=== PATIENT | female | born 2005 | race Hispanic/Latino ===

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

== ENCOUNTER 2024-03-29 18:34 | Emergency (ER) | payer SELFPAY ==
[~2024-03-29] VITALS: Ht 149.9 cm; Wt 74.8 kg
[~2024-03-29 18:34] MED LIST: IBUP-2070 PO
[2024-03-29 19:18] LABS: BASOPHILS # (AUTO) 0.01 K/uL (0.00-0.20); BASOPHILS % (AUTO) 0.1 % (0.0-5.0); HEMATOCRIT 40.6 % (36-48); IMMATURE GRANULOCYTE ABSOLUTE 0.02 K/uL (0-1); LYMPHOCYTES % (AUTO) 10.5 % (21.0-51.0); MEAN CORPUSCULAR HEMOGLOBIN 24.3 pg (27.0-33.0); MEAN CORPUSCULAR HGB CONC 31.3 g/dL (32.0-36.0); MEAN CORPUSCULAR VOLUME 77.8 fL (80-100); MONOCYTES # (AUTO) 0.4 K/uL (0.1-1.0); MONOCYTES % (AUTO) 4.1 % (3.0-13.0); NEUTROPHILS # (AUTO) 8.2 K/uL (1.8-7.7); NEUTROPHILS % (AUTO) 85.1 % (40.0-77.0); PLATELET COUNT (AUTO) 289 K/uL (130-400); RED BLOOD CELL COUNT(AUTO) 5.22 MIL/uL (4.00-5.50); RED CELL DISTRIBUTION WIDTH 14.5 % (11.0-15.5); WHITE BLOOD COUNT (AUTO) 9.7 K/uL (4.8-10.8)
[2024-03-29 19:27] LABS: CREATININE 0.9 mg/dL (0.5-1.0); POTASSIUM 3.1 mmol/L (3.5-5.1)
[2024-03-29 19:31] LABS: BILIRUBIN,DIRECT 0.2 mg/dL (0.0-0.3); BILIRUBIN,TOTAL 1.4 mg/dL (0.2-1.0); TOTAL PROTEIN, SERUM 8.3 g/dL (6.0-8.3)
--- NOTE | 2024-03-29 19:45 | NUR ---
CALLED FOR PT IN LOBBY TO MOVE TO FT; NO RESPONSE; PT NOT FOUND IN LOBBY
--- NOTE | 2024-03-29 20:00 | HMCIMG ---
CT ABDOMEN/PELVIS W/O CONTRAST REASON: bilateral flank pain COMPARISON: None. FINDINGS: Lung bases are clear. There are no focal liver lesions. There are normal-appearing kidneys.. Spleen and pancreas appear unremarkable. The gallbladder appears normal as well. Bowel loops appear unremarkable. This includes normal appearance of the appendix There is no evidence of free fluid or intraperitoneal air. There are no focal fluid collections. Aorta and retroperitoneum appear normal as do pelvic soft tissue structures. The anterior abdominal wall is intact. Osseous structures appear unremarkable. IMPRESSION: 1. Negative noncontrast CT abdomen and pelvis. CT was performed with one or more following dose reduction techniques: automated exposure control, adjustment of the mA and kv according to patient's size, or use of a iterative reconstruction technique.
--- NOTE | 2024-03-29 20:30 | ERN ---
ED Note History of Present Illness Stated Complaint: DIARRHEA Chief Complaint: Nausea,Vomiting,Diarrhea Time Seen by MD: 18:36 Time Seen by Midlevel: 18:36 Dictation: The patient is a 18-year-old female with a history of gastric sleeve who presents to the emergency department with a limits of bilateral flank pain onset this morning associated with nausea and nonbloody vomiting x4, nonbloody diarrhea. Denies any back trauma, Fevers, blood in urine. Allergies: Coded Allergies: No Known Allergies (Unverified Allergy, Unknown, 11/01/21) Home Meds Active Scripts Ibuprofen (Ibuprofen) 600 Mg Tablet, 600 MG PO Q6H PRN for PAIN, #30 TAB 0 Refills Prov:RICHARD ANDERSON MD 11/01/21 Past Medical History Past Medical History: No Pertinent History Surgical History: Bariatric Surgery Social History: Negative LMP: Feb 23, 2024 RN Note Reviewed/Agreed w/PFSH: Yes Review of System Dictation Constitutional: Negative for fever,chills, and weight loss Eyes: Negative for injury, pain,redness, and discharge ENT: Negative for injury,pain or swelling Cardiovascular: Negative for chest pain, palpitations, and edema Respiratory: Negative for shortness of breath, cough, and wheezing, Abdomen/GI: Negative for abdominal pain, and constipation positive for vomiting diarrhea, nausea Back: Negative for injury and pain : Negative for injury, bleeding and discharge positive flank pain MS/Extremity: Negative for injury and deformity Skin: Negative for rash, and discoloration Neuro: Negative for headache, weakness, numbness, tingling, and seizure Psych: Negative for suicide ideation, homicidal ideation, and hallucinations Initial Vital Sign VS Vital Signs Date Time Temp Pulse Resp B/P (MAP) Pulse Ox O2 Delivery O2 Flow Rate FiO2 03/29/24 18:35 99.7 92 18 128/62 100 Room Air 0 03/29/24 21:22 21 Physical Exam Dictation Vital Signs reviewed General Appearance: Alert, oriented x 3, no acute distress, well developed, nourished. Head and Face: non-traumatic. Eyes: PERRL, pink conjunctivas, eyelid no trauma, anterior chamber with arcus senilis. Ears: Pinnas intact and no signs of trauma or erythema ear canals clear and no discharge TM no erythema Nose: No discharge, no bleeding. Oropharynx: Mouth normal, tongue pink. pharynx clear,no erythema, tonsils no exudates, no abscesses noted, mucous membrane moist Neck: Supple, non-tender, no thyromegaly, no masses, no JVD, no bruits Breast:Deferred Chest:No tenderness, no crepitus, no paradoxical movement, no retractions Lungs:Clear, well-ventilated, symmetric, no rales, no wheezing, no rhonchi, no stridor, good breath sounds bilaterally Heart: Regular rate, regular rhythm, no murmur, no gallops Vascular: no peripheral edema, Abdomen: Soft, positive bowel sounds, nondistended, no guarding, nontender, no rebound, no masses no hepatomegaly, no splenomegaly, no Hargrove's sign, no hernias. Rectal: Deferred Genital: Deferred Neurological: Normal speech, motor function intact, sensory function intact Musculoskeletal: Neck nontender, full range of motion, back nontender, full range of motion, Extremities: nontender, full range of motion Skin: Color pink, dry, no turgor, no rash, no lacerations, no abrasions, no contusions. Lymphatic: Deferred Results (Laboratory/Radiology) Laboratory/Radiology Laboratory Tests Test 03/29/24 19:05 03/29/24 21:31 White Blood Count 9.7 K/uL (4.8-10.8) Red Blood Count 5.22 MIL/uL (4.00-5.50) Hemoglobin 12.7 g/dL (12.0-16.0) Hematocrit 40.6 % (36-48) Mean Corpuscular Volume 77.8 fL (80-100) L Mean Corpuscular Hemoglobin 24.3 pg (27.0-33.0) L Mean Corpuscular Hemoglobin Concent 31.3 g/dL (32.0-36.0) L Red Cell Distribution Width 14.5 % (11.0-15.5) Platelet Count 289 K/uL (130-400) Mean Platelet Volume 11.1 fL (7.5-10.5) H Immature Granulocyte % (Auto) 0.2 % (0-1) Neutrophils (%) (Auto) 85.1 % (40.0-77.0) H Lymphocytes (%) (Auto) 10.5 % (21.0-51.0) L Monocytes (%) (Auto) 4.1 % (3.0-13.0) Eosinophils (%) (Auto) 0.0 % (0.0-8.0) Basophils (%) (Auto) 0.1 % (0.0-5.0) Neutrophils # (Auto) 8.2 K/uL (1.8-7.7) H Lymphocytes # (Auto) 1.0 K/uL (1.0-4.8) Monocytes # (Auto) 0.4 K/uL (0.1-1.0) Eosinophils # (Auto) 0.00 K/uL (0.00-0.70) Basophils # (Auto) 0.01 K/uL (0.00-0.20) Absolute Immature Granulocyte (auto 0.02 K/uL (0-1) Nucleated Red Blood Cells 0.0 % (0.0-0.19) Red Blood Cell Morphology See comments Sodium Level 140 mmol/L (136-145) Potassium Level 3.1 mmol/L (3.5-5.1) L Chloride Level 103 mmol/L (101-111) Carbon Dioxide Level 24 mmol/L (21-32) Blood Urea Nitrogen 8 mg/dL (7-18) Creatinine 0.9 mg/dL (0.5-1.0) Glomerular Filtration Rate Calc 94 mL/min (>90) Random Glucose 87 mg/dL (70-105) Total Calcium 9.6 mg/dL (8.5-10.1) Total Bilirubin 1.4 mg/dL (0.2-1.0) H Direct Bilirubin 0.2 mg/dL (0.0-0.3) Aspartate Amino Transf (AST/SGOT) 19 U/L (10-37) Alanine Aminotransferase (ALT/SGPT) 28 U/L (12-78) Alkaline Phosphatase 74 U/L (50-136) Total Creatine Kinase 60 U/L (21-232) Total Protein 8.3 g/dL (6.0-8.3) Albumin 4.0 g/dL (3.5-5.0) Lipase 25 U/L (16-77) Serum Test, Qualitative NEGATIVE (NEGATIVE) Urine Color YELLOW (YELLOW) Urine Appearance CLOUDY (CLEAR) H Urine pH 6.5 (5.0-8.0) Urine Specific [place] 1.031 (1.001-1.031) Urine Protein 30 mg/dL (NEGATIVE) H Urine Glucose (UA) NEGATIVE mg/dL (NEGATIVE) Urine Ketones 60 mg/dL (NEGATIVE) H Urine Occult Blood NEGATIVE (NEGATIVE) Urine Nitrate NEGATIVE (NEGATIVE) Urine Bilirubin NEGATIVE mg/dL (NEGATIVE) Urine Urobilinogen 3 mg/dL (0.2-1.0) H Urine Leukocyte Esterase 500 Melissa/uL (NEGATIVE) H Urine RBC 6-10 /HPF (0-1) H Urine WBC 11-25 /HPF (0-1) H Urine Squamous Epithelial Cells FEW /HPF (0-2) Urine Bacteria RARE /HPF (None Seen) Urine Other Casts 3 /LPF (None Seen) Urine Yeast RARE /HPF (None Seen) REASON: bilateral flank pain ORDERING PHYSICIAN: CARLEY BALDWIN PROCEDURE: ABD PEL WO - CT ABDOMEN/PELVIS W/O CONTRAST CT ABDOMEN/PELVIS W/O CONTRAST REASON: bilateral flank pain COMPARISON: None. FINDINGS: Lung bases are clear. There are no focal liver lesions. There are normal-appearing kidneys.. Spleen and pancreas appear unremarkable. The gallbladder appears normal as well. Bowel loops appear unremarkable. This includes normal appearance of the appendix There is no evidence of free fluid or intraperitoneal air. There are no focal fluid collections. Aorta and retroperitoneum appear normal as do pelvic soft tissue structures. The anterior abdominal wall is intact. Osseous structures appear unremarkable. IMPRESSION: 1. Negative noncontrast CT abdomen and pelvis. CT was performed with one or more following dose reduction techniques: automated exposure control, adjustment of the mA and kv according to patient's size, or use of a iterative reconstruction technique. Labs Reviewed?: Yes ED Course ED Course Orders Procedure Category Date Status Time Cbc With Differential LAB 03/29/24 Complete 18:54 Urinalysis Profile LAB 03/29/24 Complete 18:54 0.9%Nacl 1000ml (Ns PHA 03/29/24 Complete 1000ml) 19:00 Morphine 4mg Syg PHA 03/29/24 Complete (Morphine 4mg Syg) 19:00 Ondansetron 4mg Inj PHA 03/29/24 Complete (Zofran 4mg Inj) 19:00 Creatine Kinase, Total LAB 03/29/24 Complete 18:54 Lipase LAB 03/29/24 Complete 18:54 Basic Metabolic Panel LAB 03/29/24 Complete 18:54 Hepatic Function Panel LAB 03/29/24 Complete 18:54 Testing, LAB 03/29/24 Complete Serum Hcg 18:54 Ct Abdomen/Pelvis W/O CT 03/29/24 Resulted Contrast 19:33 Ketorolac PHA 03/29/24 Complete Tromethamine 30mg/Ml 20:00 Potassium Bicarb/Cit PHA 03/29/24 Complete Ac 25meq (K-Lyte Ta 22:00 Culture Urine DELGADO 03/29/24 In Process 21:46 Ceftriaxone 1g Vial PHA 03/29/24 Complete (Rocephine 1g Inj) 22:00 Current Medications Medications (Trade) Dose Ordered Sig/Nicole Route PRN Reason Start Time Stop Time Status Last Admin Dose Admin Ceftriaxone Sodium (ROCEphine 1G INJ) 1 gm ONCE ONCE IVPB 03/29/24 22:00 03/29/24 22:01 DC 03/29/24 22:17 Ketorolac Tromethamine (toRADol) 30 mg ONCE ONCE IVP 03/29/24 20:00 03/29/24 20:01 DC 03/29/24 21:55 Morphine Sulfate (morPHINE 4MG SYG) 4 mg ONCE ONCE IVP 03/29/24 19:00 03/29/24 19:01 DC 03/29/24 21:55 Ondansetron HCl (zoFRAN 4MG INJ) 4 mg ONCE ONCE IVP 03/29/24 19:00 03/29/24 19:01 DC 03/29/24 21:55 Potassium Bicarbonate (K-Lyte Tablet Eff 25 Meq Tablet.eff) 25 meq ONCE ONCE PO 03/29/24 22:00 03/29/24 22:01 DC 03/29/24 21:55 Sodium Chloride 1,000 ml @ 0 mls/hr ONCE ONCE IV 03/29/24 19:00 03/29/24 19:01 DC 03/29/24 21:54 Vital Signs Date Time Temp Pulse Resp B/P (MAP) Pulse Ox O2 Delivery O2 Flow Rate FiO2 03/29/24 21:22 99.7 92 18 128/62 100 Room Air* 0 21 03/29/24 18:35 99.7 92 18 128/62 100 Room Air 0 Medical Decision Making MDM The patient is a 18-year-old female with a history of gastric sleeve who presents to the emergency department with a limits of bilateral flank pain onset this morning associated with nausea and nonbloody vomiting x4, nonbloody diarrhea. Denies any back trauma. Fevers, blood in urine. CBC showed no leukocytosis, no anemia, chemistry showed mild hypo kalemia, normal renal function, negative lipase, urinalysis positive for UTI. CT abdomen showed no acute pathology. Patient back pain appears to be muscular in nature. No CVA tenderness. Nontender abdomen. Patient reports improvement in pain. Labs and imaging discussed with the patient who agrees to be discharged and follow up with PCP. Differential diagnosis: Kidney stone, gastroenteritis, back strain, electrolyte imbalance Need for hospitalization: Patient does not meet criteria for hospitalization. There are no social concerns with this patient. DX & DISP Disposition: Discharge Departure Impression: Primary Impression: UTI (urinary tract infection) Additional Impressions: Gastroenteritis, Back pain, Hypokalemia Condition: Stable Scripts Nitrofurantoin Monohyd/M-Cryst (Macrobid 100 mg Capsule) 100 Mg Capsule 1 CAP PO BID for 5 Days, #10 CAP 0 Refills Prov: CARLEY BALDWIN [employer] 03/29/24 Cyclobenzaprine HCl (Flexeril) 10 Mg Tab 10 MG PO TID for muscle sstiffness, #14 TAB 0 Refills Prov: CARLEY BALDWIN [employer] 03/29/24 Ondansetron (Ondansetron Odt) 4 Mg Tab.rapdis 4 MG PO Q6HPRN PRN for nausea, #16 TAB 0 Refills Prov: BALDWINCARLEY [employer]ERGROUND [employer]ER 03/29/24 Additional Instructions: Please follow up with your primary doctor in 1-2 days. If symptoms worsen please return to ER. FOLLOW-UP WITH PRIMARY CARE PROVIDER IN 1 TO 2 DAYS. TAKE MEDICATIONS DIRECTED HERE IN THE EMERGENCY ROOM. OKAY TO CONTINUE HOME MEDICATIONS UNLESS OTHERWISE DISCUSSED DURING YOUR VISIT IN THE EMERGENCY ROOM TODAY. RETURN TO YOUR NEAREST EMERGENCY ROOM IF SYMPTOMS WORSEN OR IF THERE IS NO IMPROVEMENT. CALL 911 IF YOU NEED IMMEDIATE ASSISTANCE. TAKE TYLENOL OR MOTRIN [id number] NEEDED AND IF NO CONTRAINDICATIONS ARE PRESENT. INCREASE ORAL HYDRATION. A WOUND CULTURE OR URINE CULTURE WAS ORDERED HERE IN THE EMERGENCY ROOM DEPARTMENT PLEASE FOLLOW-UP WITH PRIMARY CARE PROVIDER AND ADVISE THEM TO GET REPEAT PORTS FROM OUR FACILITY. IF YOU HAD ANY [place] WRAP/SPLINTS THAT WERE APPLIED HERE, PLEASE DO NOT REMOVE THEM UNTIL YOU SEE YOUR PRIMARY CARE OR SPECIALTY. Referrals: SELF,REFERRAL (PCP) Time of Disposition: 22:30 I have reviewed the case, and I agree with, Diagnosis and Plan CARLEY BALDWIN Mar 29, 2024 20:30
[2024-03-29 21:22] VITALS: BP 128/62; PULSE 92; RESP 18; TEMP 99.7; O2SAT 100
[2024-03-29 21:45] LABS: APPEARANCE,URINE CLOUDY (CLEAR); BILIRUBIN,URINE NEGATIVE (NEGATIVE); COLOR,URINE YELLOW (YELLOW); GLUCOSE, URINE (UA) NEGATIVE (NEGATIVE); KETONES,URINE 60 mg/dL (NEGATIVE); LEUKOCYTE ESTERASE ,URINE 500 Leu/uL (NEGATIVE); NITRATE,URINE NEGATIVE (NEGATIVE); OCCULT BLOOD,URINE NEGATIVE (NEGATIVE); PH,URINE 6.5 (5.0-8.0); PROTEIN,URINE 30 mg/dL (NEGATIVE); UROBILINOGEN,URINE 3 mg/dL (0.2-1.0)
[2024-03-29 21:46] LABS: ADD UA MICROSCOPIC YES
[2024-03-29 21:50] LABS: BACTERIA,URINE RARE /HPF (None Seen); MUCUS,URINE RARE LPF (None Seen); OTHER CASTS, URINE 3 /LPF (None Seen); SQUAMOUS EPITHELIAL CELL,UR FEW /HPF (0-2); YEAST,URINE BUDDING RARE /HPF (None Seen)
[2024-03-29] MEDS: 0.9%NACL 1000ML 1,000 ML IV ONE (21:54)
[2024-03-29] MEDS: ketOROlac 30MG VIAL (30MG/ML) IVP ONE (21:55)
[2024-03-29] MEDS: PoTASSium BIcarbonate/CIT AC 25 MEQ TABLET.EFF PO ONE (21:55)
[2024-03-29] MEDS: ondanSETRON 4MG INJ IVP ONE (21:55)
[2024-03-29] MEDS: morPHINE 4 MG SYG IVP ONE (21:55)
[2024-03-29] MEDS: cefTRIAXone 1G VIAL IVPB ONE (22:17)
[2024-03-29] MEDS ORDERED: CYCL10TA16 PO (22:34)
[2024-03-29] MEDS ORDERED: NITR100C4 PO (22:34)
[2024-03-29] MEDS ORDERED: ONDA-243 PO (22:34)
== END 2024-03-29 22:39 | disposition home or self-care (01) ==
LOC: EDH 18:34
DX: N39.0 Urinary tract infection, site not specified (principal); K52.9 Noninfective gastroenteritis and colitis, unspecified; E87.6 Hypokalemia
CPT/HCPCS: 99285; 74176; 96374; 96375; 82550; 80076; 80048; 84703; 83690; 85025; 87086; 81001; 36415; J7030; J0696; J2405; J2270; J1885